=== PATIENT | female | born 1965 | race Caucasian/White ===

== ENCOUNTER 2017-03-29 12:29 | Emergency (ER) | payer BC ==
[~2017-03-29] VITALS: Ht 162.6 cm; Wt 69.9 kg
[~2017-03-29 12:29] MED LIST: ASCORBIC ACID100 MG PO; CALCIUM 600 +1 EAC5 PO; CIPROFLOXACIN500 M1 PO; FISH OIL300 MG PO; IRON160 M1 PO; JUNEL1 EACH PO; METRONIDAZOLE500 MG PO; MICROGESTIN FE1 EAC1 PO; OMEPRAZOLE40 M1 PO; PERCOCET 5/31 TABLET PO; PREDNISONE10 MG PO; PREDNISONE20 MG PO; PREDNISONE5 MG PO; PRILOSEC40 MG PO; PROMETHAZINE HC25 M1 PO; SPRINTEC1 EACH PO; SUPER MULTIPLE1 EACH PO; TRAMADOL HCL50 MG PO; VITAMIN B12-FO1 EACH PO
[2017-03-29 13:24] LABS: HEMATOCRIT 32.3 % (36.0-46.0); MCH 31.5 PG (29.0-34.0); MCHC 34.7 G/DL (30.0-36.0); PLATELET COUNT 154 K/uL (156-360); RBC DIS.WIDTH-SD 43.7 % (39-53); RED BLOOD COUNT 3.55 M/uL (3.80-5.20); WHITE BLOOD COUNT 14.2 K/uL (4.1-10.2)
[2017-03-29 13:31] LABS: ADD MIUA? YES; BILIRUBIN NEGATIVE; BLOOD LARGE; COLOR AMBER ((YELLOW)); GLUCOSE (STRIP) 150; KETONES NEGATIVE; LEUKOCYTES SMALL; NITRITE POSITIVE; PROTEIN (STRIP) >=500
[2017-03-29 13:34] LABS: CHLORIDE 97 mEq/L (99-109); POTASSIUM 3.1 mEq/L (3.7-5.4); SODIUM 134 mEq/L (136-147)
[2017-03-29 13:36] LABS: GLUCOSE 261 mg/dL (70-99)
[2017-03-29 13:38] LABS: ANION GAP 14 MEQ/L (2-14); TOTAL BILIRUBIN 1.1 mg/dL (0.0-1.0)
[2017-03-29 13:40] LABS: ALKALINE PHOSPHATASE 188 IU/L (3-129); GFR ESTIMATE (CALCULATED) 46 mL/min/
[2017-03-29 13:41] LABS: UREA NITROGEN (BUN) 25 mg/dL (9-23)
[2017-03-29 13:42] LABS: BACTERIA 3+ /HPF; EPITHELIAL CELLS NONE SEEN /HPF; MUCUS NONE SEEN /LPF; RED BLOOD CELLS TNTC /HPF (0-5); UCUL ADDED? YES; WHITE BLOOD CELLS TNTC /HPF (0-5)
[2017-03-29 13:49] LABS: QUANTITATIVE HCG < 4.0 MIU/ML
[2017-03-29 14:11] LABS: LIPASE 9 U/L (1.0-51.0)
[2017-03-29] MEDS ORDERED: LEVAQUIN750 MG PO (15:26)
[2017-03-29] MEDS ORDERED: ZOFRAN ODT4 MG PO (15:26)
[2017-03-29 16:50] VITALS: BP 117/74
== END 2017-03-29 17:15 | disposition home or self-care (01) ==
LOC: EME 12:29
DX: N12 Tubulo-interstitial nephritis, not specified as acute or chronic (principal); K50.90 Crohn's disease, unspecified, without complications; K21.9 Gastro-esophageal reflux disease without esophagitis
CPT/HCPCS: 74177; 80053; 81003; 83690; 84702; 85027; 87077; 87086; 87186; 99281; 99285; J0696; J2405; J3010; J7030; J7050

== ENCOUNTER 2017-05-03 20:57 | Inpatient (IN) | payer BC ==
[~2017-05-03] VITALS: Ht 162.6 cm; Wt 102.7 kg
[~2017-05-03 20:57] MED LIST changes: +LEVAQUIN750 MG PO; -OMEPRAZOLE40 M1 PO; +PRILOSEC20 MG PO; +ZOFRAN ODT4 MG PO
[2017-05-03 22:15] LABS: EOSINOPHIL (%) 0 % (0-5); HEMATOCRIT 33.3 % (36.0-46.0); IMMATURE GRANULOCYTE (%) 0.5 % (0.0-0.7); IMMATURE GRANULOCYTE COUNT 0.1 K/uL; INSTRUMENT ABS NEUTROPHIL CT 9.4 K/uL; LYMPHOCYTE COUNT 0.6 K/uL (1.0-2.8); MCH 32.1 PG (29.0-34.0); MCHC 34.5 G/DL (30.0-36.0); MEAN PLAT.VOLUME 11.1 uM^3 (9.5-12.4); MONOCYTE (%) 5.7 % (3-12); MONOCYTE COUNT 0.6 K/uL (0-0.8); NEUTROPHIL (%) 88.4 % (45-76); NEUTROPHIL COUNT 9.4 K/uL (1.8-6.4); PLATELET COUNT 135 K/uL (156-360); RBC DIS.WIDTH-CV 13.4 % (11.8-14.6); RBC DIS.WIDTH-SD 46.3 % (39-53); RED BLOOD COUNT 3.58 M/uL (3.80-5.20); WHITE BLOOD COUNT 10.6 K/uL (4.1-10.2)
[2017-05-03 22:24] LABS: CHLORIDE 100 mEq/L (99-109); POTASSIUM 3.2 mEq/L (3.7-5.4); SODIUM 136 mEq/L (136-147)
[2017-05-03 22:26] LABS: GLUCOSE 234 mg/dL (70-99)
[2017-05-03 22:28] LABS: ANION GAP 13 MEQ/L (2-14)
[2017-05-03 22:30] LABS: GFR ESTIMATE (CALCULATED) 55 mL/min/
[2017-05-03 22:31] LABS: UREA NITROGEN (BUN) 16 mg/dL (9-23)
[2017-05-04] MEDS ORDERED: REMICADE10 MG/ML IV (00:48)
[2017-05-04 06:21] VITALS: BP 123/69
[2017-05-04 07:02] LABS: Estimated Average Glucose 126 mg/dL (70-123)
[2017-05-04 07:59] VITALS: BP 105/56
[2017-05-04 08:02] LABS: POINT-OF-CARE METER ID UU14208753
[2017-05-04 08:32] LABS: MCH 31.8 PG (29.0-34.0); MCHC 33.5 G/DL (30.0-36.0); MCV 94.9 FL (83-99); MEAN PLAT.VOLUME 10.9 uM^3 (9.5-12.4); PLATELET COUNT 97 K/uL (156-360); RBC DIS.WIDTH-CV 13.8 % (11.8-14.6); WHITE BLOOD COUNT 9.2 K/uL (4.1-10.2)
[2017-05-04 08:33] LABS: RED BLOOD COUNT 2.74 M/uL (3.80-5.20)
[2017-05-04 08:53] LABS: ANION GAP 10 MEQ/L (2-14); CHLORIDE 105 MEQ/L (99-109); GFR ESTIMATE (CALCULATED) > 59 mL/min/; GLUCOSE 203 mg/dL (70-99); MAGNESIUM 1.4 mg/dl (1.3-2.7); SAMPLE HEMOLYSIS CHECK 0; SAMPLE ICTERIC CHECK 0; SAMPLE LIPEMIA CHECK 0; SODIUM 138 MEQ/L (136-147); UREA NITROGEN (BUN) 15 mg/dL (9-23)
[2017-05-04 11:01] VITALS: BP 134/62
[2017-05-04 11:18] LABS: POINT-OF-CARE METER ID UU14117124
[2017-05-04 16:25] LABS: POINT-OF-CARE METER ID UU14117124
[2017-05-04 16:27] VITALS: BP 107/57
[2017-05-04 22:00] LABS: POINT-OF-CARE METER ID UU14149397
[2017-05-04 23:35] VITALS: BP 117/61
[2017-05-05 06:04] LABS: HEMATOCRIT 26.8 % (36.0-46.0); MCH 32.3 PG (29.0-34.0); MCHC 33.6 G/DL (30.0-36.0); MCV 96.1 FL (83-99); MEAN PLAT.VOLUME 10.7 uM^3 (9.5-12.4); PLATELET COUNT 90 K/uL (156-360); RBC DIS.WIDTH-CV 14.1 % (11.8-14.6); RBC DIS.WIDTH-SD 50.3 % (39-53); RED BLOOD COUNT 2.79 M/uL (3.80-5.20); WHITE BLOOD COUNT 6.1 K/uL (4.1-10.2)
[2017-05-05 06:34] LABS: ANION GAP 8 MEQ/L (2-14); CHLORIDE 109 MEQ/L (99-109); GFR ESTIMATE (CALCULATED) > 59 mL/min/; GLUCOSE 135 mg/dL (70-99); POTASSIUM 3.4 MEQ/L (3.7-5.4); SAMPLE HEMOLYSIS CHECK 0; SAMPLE ICTERIC CHECK 0; SAMPLE LIPEMIA CHECK 0; SODIUM 142 MEQ/L (136-147); UREA NITROGEN (BUN) 13 mg/dL (9-23)
[2017-05-05 07:11] LABS: POINT-OF-CARE METER ID UU14208753
[2017-05-05 07:59] VITALS: BP 126/69
[2017-05-05 11:30] LABS: POINT-OF-CARE METER ID UU14208753
[2017-05-05 15:57] VITALS: BP 127/73
[2017-05-05 16:29] LABS: POINT-OF-CARE METER ID UU14208753
[2017-05-05 22:08] LABS: POINT-OF-CARE METER ID UU14117124
[2017-05-05 23:27] VITALS: BP 141/71
[2017-05-06 05:57] LABS: HEMATOCRIT 24.8 % (36.0-46.0); MCH 32.3 PG (29.0-34.0); MCHC 34.3 G/DL (30.0-36.0); MCV 94.3 FL (83-99); MEAN PLAT.VOLUME 11.3 uM^3 (9.5-12.4); PLATELET COUNT 102 K/uL (156-360); RBC DIS.WIDTH-CV 14.1 % (11.8-14.6); RBC DIS.WIDTH-SD 48.2 % (39-53); RED BLOOD COUNT 2.63 M/uL (3.80-5.20); WHITE BLOOD COUNT 4.4 K/uL (4.1-10.2)
[2017-05-06 06:20] LABS: ANION GAP 8 MEQ/L (2-14); CHLORIDE 105 MEQ/L (99-109); GFR ESTIMATE (CALCULATED) > 59 mL/min/; GLUCOSE 124 mg/dL (70-99); MAGNESIUM 1.8 mg/dl (1.3-2.7); POTASSIUM 3.1 MEQ/L (3.7-5.4); SAMPLE HEMOLYSIS CHECK 0; SAMPLE ICTERIC CHECK 0; SAMPLE LIPEMIA CHECK 0; SODIUM 138 MEQ/L (136-147); UREA NITROGEN (BUN) 10 mg/dL (9-23)
[2017-05-06 07:06] LABS: POINT-OF-CARE METER ID UU14117124
[2017-05-06 08:00] VITALS: BP 127/77
[2017-05-06 12:04] LABS: POINT-OF-CARE METER ID UU14117124
[2017-05-06 16:06] LABS: POINT-OF-CARE METER ID UU14117124
[2017-05-06 16:16] VITALS: BP 123/70
[2017-05-06 21:43] LABS: POINT-OF-CARE METER ID UU14117124
[2017-05-06 22:54] VITALS: BP 131/75
[2017-05-07 06:16] LABS: POINT-OF-CARE METER ID UU14149397
[2017-05-07 08:29] VITALS: BP 125/71
[2017-05-07] MEDS ORDERED: CEFTRIAXONE2 G1 IM (09:32)
[2017-05-07 11:31] LABS: POINT-OF-CARE METER ID UU14188577
[2017-05-07] MEDS ORDERED: ROCEPHIN 2 GM VI2 GM IV (16:00)
[2017-05-08] MEDS ORDERED: ASPIR 8181 M1 PO (17:18)
[2017-05-08] MEDS ORDERED: REMICADE10 MG/ML IV (17:19)
== END 2017-05-07 12:33 | disposition home or self-care (01) | DRG 872 ==
LOC: EME 20:57 → EDOF 05-04 04:36 → 3EAST 05-04 04:36 → ENRESERV 05-04 04:37 → 3EAST 05-04 05:50
PROVIDERS: Emergency Medicine; Hospitalist; Internal Medicine; Physician Assistant
DX: A41.9 Sepsis, unspecified organism (principal); N12 Tubulo-interstitial nephritis, not specified as acute or chronic; B96.20 Unspecified Escherichia coli [E. coli] as the cause of diseases classified elsewhere; Z16.23 Resistance to quinolones and fluoroquinolones; E87.6 Hypokalemia; R73.9 Hyperglycemia, unspecified; D63.8 Anemia in other chronic diseases classified elsewhere; D69.6 Thrombocytopenia, unspecified; K50.918 Crohn's disease, unspecified, with other complication; K21.9 Gastro-esophageal reflux disease without esophagitis
CPT/HCPCS: 76770; 80048; 80170; 81003; 82948; 83036; 83605; 83735; 85025; 85027; 87040; 87077; 87086; 87186; 87493; 87801; 99281; 99285; J0692; J0696; J1580; J1650; J1815; J2270; J2405; J7030; J7050; S0028

== ENCOUNTER 2017-06-18 13:32 | Inpatient (IN) | payer BC, OTHER ==
[~2017-06-18] VITALS: Ht 162.6 cm; Wt 66.6 kg
[~2017-06-18 13:32] MED LIST changes: +ASPIR 8181 M1 PO; +CEFTRIAXONE2 G1 IM; +REMICADE10 MG/ML IV; +ROCEPHIN 2 GM VI2 GM IV
[2017-06-18 14:23] LABS: ADD MIUA? YES; BILIRUBIN NEGATIVE; BLOOD SMALL; COLOR AMBER ((YELLOW)); GLUCOSE (STRIP) NEGATIVE; KETONES NEGATIVE; LEUKOCYTES LARGE; NITRITE NEGATIVE; PROTEIN (STRIP) 100; UROBILINOGEN 0.2 MG/DL (0.2-1.0)
[2017-06-18 14:36] LABS: WHITE BLOOD CELLS TNTC /HPF (0-5)
[2017-06-18 14:37] LABS: BACTERIA 2+ /HPF; EPITHELIAL CELLS 3+ /HPF; MUCUS TRACE /LPF; UCUL ADDED? YES
[2017-06-18 15:05] LABS: HEMATOCRIT 34.1 % (36.0-46.0); MCHC 33.7 G/DL (30.0-36.0); MEAN PLAT.VOLUME 10.9 uM^3 (9.5-12.4); PLATELET COUNT 178 K/uL (156-360); RBC DIS.WIDTH-CV 13.4 % (11.8-14.6); RBC DIS.WIDTH-SD 46.8 % (39-53); RED BLOOD COUNT 3.59 M/uL (3.80-5.20); WHITE BLOOD COUNT 15.8 K/uL (4.1-10.2)
[2017-06-18 15:13] LABS: CHLORIDE 102 mEq/L (99-109); POTASSIUM 3.8 mEq/L (3.7-5.4); SODIUM 137 mEq/L (136-147)
[2017-06-18 15:14] LABS: GLUCOSE 163 mg/dL (70-99)
[2017-06-18 15:16] LABS: ANION GAP 11 MEQ/L (2-14)
[2017-06-18 15:18] LABS: GFR ESTIMATE (CALCULATED) 55 mL/min/
[2017-06-18 15:19] LABS: UREA NITROGEN (BUN) 15 mg/dL (9-23)
[2017-06-18] MEDS ORDERED: REMICADE (15:26)
[2017-06-18] MEDS ORDERED: FISH OIL 1,0001 EA10 PO (15:27)
[2017-06-18] MEDS ORDERED: LO-DOSE ASPIRIN81 M1 PO (15:27)
[2017-06-18] MEDS ORDERED: MULTIVITAMIN (15:27)
[2017-06-18] MEDS ORDERED: IRON PO (15:27)
[2017-06-18] MEDS ORDERED: CYANOCOBALAM1000 MCG PO (15:27)
[2017-06-18] MEDS ORDERED: PROBIOTIC (15:27)
[2017-06-18] MEDS ORDERED: SPRINTEC1 EACH PO (15:28)
[2017-06-18] MEDS ORDERED: VITAMIN C1500 MG PO (15:28)
[2017-06-18] MEDS ORDERED: FIBER (15:28)
[2017-06-18] MEDS ORDERED: PRILOSEC20 MG PO (15:28)
[2017-06-18 17:01] LABS: TOTAL BILIRUBIN 1.1 mg/dL (0.0-1.0)
[2017-06-18 17:02] LABS: ALKALINE PHOSPHATASE 93 IU/L (3-129)
[2017-06-18 17:04] LABS: DIRECT BILIRUBIN 0.6 mg/dL (0.0-0.3)
[2017-06-18 17:05] LABS: LIPASE 4 U/L (1.0-51.0)
[2017-06-18 17:09] LABS: TROP-I INTERPRETATION NEGATIVE; TROPONIN-I < 0.01 ng/mL (0.0-0.30)
[2017-06-18] MEDS ORDERED: TRAMADOL HCL50 MG PO (17:22)
[2017-06-18 18:42] VITALS: BP 188/84
[2017-06-18 20:48] VITALS: BP 151/77
[2017-06-19] VITALS (7 sets, daily range): BP systolic 100–152; BP diastolic 59–82
[2017-06-19 06:51] LABS: HEMATOCRIT 26.8 % (36.0-46.0); MCH 32.3 PG (29.0-34.0); MCHC 33.6 G/DL (30.0-36.0); MCV 96.1 FL (83-99); RBC DIS.WIDTH-CV 13.6 % (11.8-14.6); RBC DIS.WIDTH-SD 48.2 % (39-53); WHITE BLOOD COUNT 10.1 K/uL (4.1-10.2)
[2017-06-19 06:52] LABS: RED BLOOD COUNT 2.79 M/uL (3.80-5.20)
[2017-06-19 07:13] LABS: PLATELET CLUMPS PRESENT - PLATELET COUNTS APPEARS DECREASED
[2017-06-19 07:14] LABS: ANION GAP 9 MEQ/L (2-14); CHLORIDE 107 MEQ/L (99-109); GFR ESTIMATE (CALCULATED) > 59 mL/min/; GLUCOSE 142 mg/dL (70-99); SAMPLE HEMOLYSIS CHECK 0; SAMPLE ICTERIC CHECK 0; SAMPLE LIPEMIA CHECK 0; SODIUM 140 MEQ/L (136-147); UREA NITROGEN (BUN) 15 mg/dL (9-23)
[2017-06-19 07:21] LABS: PLATELET COUNT UNABLE TO REPORT K/uL (156-360)
[2017-06-20 03:41] VITALS: BP 124/68
[2017-06-20 06:46] LABS: EOSINOPHIL (%) 0.2 % (0-5); HEMATOCRIT 28.2 % (36.0-46.0); IMMATURE GRANULOCYTE (%) 0.3 % (0.0-0.7); INSTRUMENT ABS NEUTROPHIL CT 4.7 K/uL; LYMPHOCYTE COUNT 1.2 K/uL (1.0-2.8); MCH 32.1 PG (29.0-34.0); MCHC 33.3 G/DL (30.0-36.0); MCV 96.2 FL (83-99); MEAN PLAT.VOLUME 11.1 uM^3 (9.5-12.4); MONOCYTE (%) 6.3 % (3-12); MONOCYTE COUNT 0.4 K/uL (0-0.8); NEUTROPHIL (%) 73.6 % (45-76); NEUTROPHIL COUNT 4.7 K/uL (1.8-6.4); RBC DIS.WIDTH-CV 13.7 % (11.8-14.6); RBC DIS.WIDTH-SD 48.6 % (39-53); RED BLOOD COUNT 2.93 M/uL (3.80-5.20); WHITE BLOOD COUNT 6.4 K/uL (4.1-10.2)
[2017-06-20 07:13] LABS: ANION GAP 7 MEQ/L (2-14); CHLORIDE 107 MEQ/L (99-109); GFR ESTIMATE (CALCULATED) > 59 mL/min/; GLUCOSE 154 mg/dL (70-99); SAMPLE HEMOLYSIS CHECK 0; SAMPLE ICTERIC CHECK 0; SAMPLE LIPEMIA CHECK 0; SODIUM 139 MEQ/L (136-147); UREA NITROGEN (BUN) 14 mg/dL (9-23)
[2017-06-20 07:15] LABS: POTASSIUM 3.8 MEQ/L (3.7-5.4)
[2017-06-20 07:58] LABS: PLATELET COUNT 114 K/uL (156-360)
[2017-06-20 08:35] VITALS: BP 128/67
[2017-06-20 11:40] VITALS: BP 127/67
[2017-06-20 15:25] VITALS: BP 128/71
[2017-06-20 23:32] VITALS: BP 126/72
[2017-06-21 06:15] LABS: EOSINOPHIL (%) 1.5 % (0-5); EOSINOPHIL COUNT 0.1 K/uL (0-0.3); HEMATOCRIT 29.9 % (36.0-46.0); IMMATURE GRANULOCYTE (%) 0.2 % (0.0-0.7); INSTRUMENT ABS NEUTROPHIL CT 2.9 K/uL; LYMPHOCYTE COUNT 1.3 K/uL (1.0-2.8); MCH 32.1 PG (29.0-34.0); MCHC 33.4 G/DL (30.0-36.0); MCV 95.8 FL (83-99); MEAN PLAT.VOLUME 10.6 uM^3 (9.5-12.4); MONOCYTE (%) 5.3 % (3-12); MONOCYTE COUNT 0.2 K/uL (0-0.8); NEUTROPHIL (%) 63.6 % (45-76); NEUTROPHIL COUNT 2.9 K/uL (1.8-6.4); PLATELET COUNT 133 K/uL (156-360); RBC DIS.WIDTH-CV 13.7 % (11.8-14.6); RBC DIS.WIDTH-SD 48.5 % (39-53); RED BLOOD COUNT 3.12 M/uL (3.80-5.20); WHITE BLOOD COUNT 4.5 K/uL (4.1-10.2)
[2017-06-21 06:39] LABS: ANION GAP 7 MEQ/L (2-14); CHLORIDE 103 MEQ/L (99-109); GFR ESTIMATE (CALCULATED) > 59 mL/min/; GLUCOSE 123 mg/dL (70-99); POTASSIUM 3.9 MEQ/L (3.7-5.4); SAMPLE HEMOLYSIS CHECK 0; SAMPLE ICTERIC CHECK 0; SAMPLE LIPEMIA CHECK 0; SODIUM 138 MEQ/L (136-147); UREA NITROGEN (BUN) 15 mg/dL (9-23)
[2017-06-21 07:48] VITALS: BP 135/83
== END 2017-06-21 14:10 | disposition home or self-care (01) | DRG 872 ==
LOC: EME 13:32 → EDOF 16:34 → 2EAST 16:34 → ENRESERV 16:36 → 2EAST 18:18
PROVIDERS: Emergency Medicine; Internal Medicine
DX: A41.51 Sepsis due to Escherichia coli [E. coli] (principal); N10 Acute pyelonephritis; B96.20 Unspecified Escherichia coli [E. coli] as the cause of diseases classified elsewhere; K50.90 Crohn's disease, unspecified, without complications; E87.6 Hypokalemia; D64.9 Anemia, unspecified; K21.9 Gastro-esophageal reflux disease without esophagitis; Z16.24 Resistance to multiple antibiotics; Z79.82 Long term (current) use of aspirin; Z79.899 Other long term (current) drug therapy; Z90.49 Acquired absence of other specified parts of digestive tract; Z87.891 Personal history of nicotine dependence
CPT/HCPCS: 71010; 76770; 80048; 80076; 81003; 83605; 83690; 84484; 85025; 85027; 87040; 87077; 87086; 87186; 87801; 99281; 99285; C1894; J0692; J0696; J1650; J2270; J2405; J7030